=== PATIENT | male | born 1940 | race Two or more races ===

== ENCOUNTER → 2023-08-27 08:02 | Outpatient (REF) | payer MEDICARE, OTHER, SELFPAY | LOC: RAD 08:02 | PROVIDERS: ATTENDING PHYSICIAN Surgery Vascular Surgery; FAMILY PHYSICIAN Nurse Practitioner Adult Health | DX: I65.23 Occlusion and stenosis of bilateral carotid arteries (principal) | CPT/HCPCS: 93880 ==

== ENCOUNTER → 2024-03-03 08:02 | Outpatient (REF) | payer MEDICARE, OTHER, SELFPAY | LOC: RAD 08:02 | PROVIDERS: ATTENDING PHYSICIAN Physician Assistant | DX: I65.23 Occlusion and stenosis of bilateral carotid arteries (principal) | CPT/HCPCS: 93880 ==

== ENCOUNTER 2024-03-13 18:59 | Observation (INO) | payer MEDICARE, OTHER, SELFPAY ==
[2024-03-13 15:13] VITALS: BP 162/70
--- NOTE | 2024-03-13 15:18 | ED.PDOC.TRB ---
ED Provider Triage
-
Patient seen by provider in Triage?: Seen in Triage
83-year-old male presents in referral from his eye doctor after being evaluated. 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 Patient offers no complaints however his states that he has been
complaining about his vision lately. He denies headache. He is alert in triage. Labs and EKG started. Deferred imaging. Patient did have outpatient vascular ultrasound of his carotids last week
[2024-03-13 15:40] LABS: % Basophils 0.7 % (0-2); % Eosinophils 3.4 % (0-6); % Immature Granulocytes 0.2 % (0-0.5); % Lymphocytes 19.7 % (20.5-51.1); Absolute Eosinophils 0.2 10^3/uL (0-0.7); Absolute Lymphocytes 0.9 10^3/uL (1.2-3.4); Absolute Monocytes 0.4 10^3/uL (0.1-0.6); Absolute Neutrophils 2.9 10^3/uL (1.4-6.5); Hematocrit 31.7 % (39.0-52.0); Hemoglobin 10.6 g/dL (13.0-18.0); Mean Corp Hgb Conc. 33.4 g/dL (33.0-37.0); Mean Corpuscular Hgb 29.9 pg (27.0-31.0); Mean Corpuscular Volume 89.5 fL (80.0-94.0); Nucleated Red Blood Cells % 0 % (-); Platelet Count 178 10^3/uL (130-400); Red Blood Cell Count 3.54 10^6/uL (4.70-6.10); Red Cell Dist. Width 14.8 % (11.5-14.5); White Blood Cell Count 4.4 10^3/uL (4.8-10.8)
[2024-03-13 16:00] LABS: ALT (SGPT) 14 U/L (0-50); AST (SGOT) 26 U/L (17-59); Albumin 3.8 g/dl (3.5-5.0); Alkaline Phosphatase 120 U/L (38-126); Blood Urea Nitrogen 23 mg/dl (9-20); Calcium 9.5 mg/dl (8.4-10.2); Carbon Dioxide 28 mmol/L (22-30); Chloride 104 mmol/L (98-107); Glucose 101 mg/dl (70-99); Potassium 4.2 mmol/L (3.5-5.1); Sodium 141 mmol/L (135-145); Total Bilirubin 0.8 mg/dl (0.2-1.3); Total Protein 7.4 g/dl (6.3-8.2); eGFR > 60.00
--- NOTE | 2024-03-13 16:45 | ED.GENMED ---
History of Present Illness
General
Chief Complaint: Eye Problems
Source: patient, spouse and other (Cash Grain [employer]er)
Exam Limitations: none
Time Seen by Provider: 03/13/24 16:24
Nursing documentation reviewed up to this point in time: agreed with
History of Present Illness
History of Present Illness:
83-year-old male presents emergency room due to a Hollenhorst plaque seen at optometry visit. Cash Grain Grower Kristine Grey saw him because he reported an intermittent change in his vision, a blue spot after having cardiac bypass last year. He also
had a carotid endarterectomy last year.
Past History
Past History
ED Past Medical History: CAD, HTN, Hypercholesterolemia and Other (Atherosclerosis)
ED Past Surgical History: Cardiac (CABG, cardiac stent)
Social History
Tobacco: Non-smoker
Alcohol: None
Drug: None
Personal:
Living: with family
Employment: Retired
Review of Systems
Review of Systems
Allergies reviewed?: Yes
All Other Systems: Not applicable
Constitutional: Reports no symptoms
EENT: Reports other (Vision changes)
Respiratory: Reports no symptoms
Cardiac: Reports no symptoms
ABD/GI: Reports no symptoms
: Reports no symptoms
Musculoskeletal: Reports no symptoms
Skin: Reports no symptoms
Neurological: Reports no symptoms
Endocrine: Reports no symptoms
Hematologic/Lymphatic: Reports no symptoms
Psychiatric: Reports no symptoms
Phy Exam
Physical Exam
Physical Exam:
Physical Exam
General: no apparent distress, not acutely ill
Neck: supple. no meningeal signs. normal posterior pharynx, left neck scar from CEA
Heart: s1/s2 regular rate and rhythm, no murmur. equal radial
pulses. Midline sternotomy scar
HEENT: Pupils equal round reactive to light, EOMI
Lungs: no acute respiratory distress. clear bilaterally
Abdomen: normal bowel sounds. not tender. no CVAT
Neuro: alert and oriented. no focal neurological deficits cranial nerves II through XII intact
Skin: no rash
Psychiatric: well kept. interactive and cooperative
Extremities: no edema. no calf tenderness. negative homans. good distal pulses
Course
Orders/Labs/Results
Orders:
Orders
03/13/24 15:14
Electrocardiogram (*1) Urgent
Reason for Study: TIA/Stroke
EKG- Treatment ONCE
03/13/24 15:31
Complete Blood Count/With Diff Urgent
Comprehensive Metabolic Panel Urgent
Glycohemoglobin (HgbA1c) Urgent
03/13/24 16:50
CT Head W/o Iv Contrast Urgent
Comment:
Reason For Exam: vision changes, Hollenhorst plaque
03/13/24 17:45
Clopidogrel Bisulfate [Plavix] 300 mg PO NOW STA
03/13/24 17:47
Aspirin Chewable [Low Strength Aspirin] 81 mg PO NOW STA
03/13/24 18:03
Admit/Transfer Patient As Directed
Co-Sign Provider:
Level of Care: Observation services
Assign to:: Telemetry
Physician / Group: acacia
Diagnosis: central retinal artery occlusion vs CVA
Reason for Telemetry: Arrhythmia
Date to Stop Telemetry: 03/16/24
Time to Stop Telemetry: 11:00
Code Status As Directed
Resuscitation Status: Do not resuscitate
Reached after discussion with pt or family/Healthcare POA: Yes
PRN Pain Medication Management As Directed
May give lesser potent ordered pain med per pt: Yes
preference::
Protocol:: Medication orders for pain may be administered in a
manner that supports deferring to patient preference
when the pt is:
- Requesting an ordered lesser potent pain medication.
Least to most potent pain medications are defined
as: acetaminophen < NSAID < tramadol < opioids
(morphine, oxycodone, hydromorphone).
- Requesting a lesser dose of the same medication IF
ORDERED.
- Requesting a less intrusive route of administration
if both routes are prescribed by the provider (PO <
IV).
03/13/24 18:04
DNR Bracelet Application ONCE
03/13/24 19:54
NEUROLOGY CONSULT Routine
Consulting Provider: Lashell Gutiérrez
Was physician already notified: Yes
MA [place] Routine
Comment:
Reason For Exam: stroke/TIA
Recent pill cam endoscopy?: No
MA Neck With Contrast Routine
Comment:
Reason For Exam: stroke/TIA
Recent pill cam endoscopy?: No
MR Brain Without Contrast Routine
Comment:
Reason For Exam: stroke/TIA
Recent pill cam endoscopy?: No
Activity As Directed
Activity Level: As Tolerated
NIH Stroke Scale As Directed
Directions: Per protocol
Comment: every shift and with any change in condition or mental status
Neurological Checks As Directed
Frequency: q4h
Additional Instructions:: q4h x 24h upon admission to the floor, then qshift & with any change in condition
and mental status
Patient Education As Directed
Type: Stroke education packet
Comment: provide to patient and family
Pneumatic Compression Sleeves As Directed
Type: Knee high
Vital Signs As Directed
Frequency: Per unit guidelines
DX Deep Vein Thrombosis Video Routine
03/13/24 22:00
Donepezil [Aricept] 5 mg PO HS
Tamsulosin [Flomax] 0.4 mg PO HS
03/14/24 06:00
Basic Metabolic Panel IN AM
Cardiovascular Evaluation IN AM
Complete Blood Count/No Diff IN AM
03/14/24 08:00
Aspirin Chewable [Low Strength Aspirin] 81 mg PO DAILY
Atorvastatin [Lipitor] 80 mg PO DAILY
Irbesartan [Avapro] 300 mg PO DAILY
Metoprolol Xl [Toprol Xl] 12.5 mg PO DAILY
Pantoprazole [Protonix] 40 mg PO DAILY
03/16/24 11:00
DC Protocol for Telemetry ONCE
Abnormal Lab Results
03/13/24
15:31
WBC 4.4 L 10^3/uL
(4.8-10.8)
RBC 3.54 L 10^6/uL
(4.70-6.10)
Hgb 10.6 L g/dL
(13.0-18.0)
Hct 31.7 L %
(39.0-52.0)
RDW 14.8 H %
(11.5-14.5)
Absolute Lymphs (auto) 0.9 L 10^3/uL
(1.2-3.4)
Lymphocytes % 19.7 L %
(20.5-51.1)
Monocytes % 10.0 H %
(1.7-9.3)
BUN 23 H mg/dl
(9-20)
Glucose 101 H mg/dl
(70-99)
03/13/24 15:31
03/13/24 15:31
Vital Signs
Initial and Last Documented VS:
Initial Vital Signs
Temp Pulse Resp BP Pulse Ox
97.6 F 68 16 162/70 99
03/13/24 15:13 03/13/24 15:13 03/13/24 15:13 03/13/24 15:13 03/13/24 15:13
Last Documented Vital Signs
Temp Pulse Resp BP Pulse Ox
97.6 F 68 16 159/74 100
03/13/24 20:15 03/13/24 20:15 03/13/24 20:15 03/13/24 20:15 03/13/24 20:15
MDM/Problems Addressed
Differential Diagnosis Includes:
CVA, atherosclerosis
MDM/Problems Addressed:
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 Admit to hospitalist.
Chronic conditions affecting care: HTN, CAD and Cardiomyopathy
Acute Exacerbation and/or Progression of Chronic Illness: HTN, CAD and Cardiomyopathy
*Radiology
Radiology exam reviewed: radiology read reviewed (CT head no acute findings)
*Pulse Oximetry
Patient hypoxic: no
*EKG
Interpreted by ED Provider?: Yes
EKG Intrepretation Date: 03/13/24
EKG Intrepretation Time: 15:26
Interpretation: normal
Comparison EKG: changes noted
Heart Rate: 62
Rate: normal
Rhythm: sinus
[place]: normal axis
Interval: normal interval
QRS Pattern: normal QRS
Ischemia: no ischemia
*House Father Interpretation
Rate: normal
Interpretation: normal
Heart Rate: 65
Rhythm: sinus
*Critical Care Note
Total Time (30-74mins, 75-104mins- exclusive of procedures): Not Applicable
Data Reviewed
Review of Other/Old Records Reveals: Operative Reports (CABG 11/29/[address])
Patient Management
Social determinants of health affecting care: Living situation
Discussion with other providers: Hospitalist and Cardiac Technologist (neurology Dr. Gutiérrez recommends admit and cva w/u)
Escalation/DeEscalation of care consider admission/obs:
admit indicated
ED Attending Note
-
Portions of this chart may have been created with voice recognition software.� Occasional wrong word or��sound alike� substitutions may have occurred due to the inherent limitations of voice recognition software.
Discharge Plan
Departure
Patient Disposition: Admit
Date of Disposition: 03/13/24
Time of Disposition: 17:38
Admit to: Telemetry
Presentation/result/management discussed w/ accepting MD/DO: Hospitalist
Patient with high blood pressure during this ER visit?: Yes
Condition: Good
Discharge Problem:
Change in vision, Hollenhorst plaque
Interventions
Interventions:
*Risk Screen - Suicide Last Done: 03/13/24 16:25
*General Assessment Last Done: 03/13/24 19:33
*Neglect/Abuse Screening Last Done: 03/13/24 16:25
*Nursing Disposition Last Done: 03/13/24 19:50
Discharge Date and Time
Discharge Date/Time: 03/13/24 19:50
[2024-03-13 17:48] VITALS: BP 168/62; BMI 24.0
--- NOTE | 2024-03-13 18:06 | HPS.HSE ---
Family Physician
-
Family Physician: BOSTON Lamar
Chief Complaint
-
abnormal eye exam
History of Present Illness
83-year-old male past medical history of CAD status post CABG x 3, ischemic cardiomyopathy, bilateral carotid artery stenosis, hypertension, hyperlipidemia, BPH, CKD, osteoarthritis, presenting to the emergency room as sent in by his cell support operator.
Patient states that he had a routine cell support operator appointment to get the prescription of his glasses updated. He denied any visual symptoms such as visual loss, floaters in the eye, blurry vision, headache, difficulty speaking or swallowing,
dizziness or vertigo, numbness or tingling or focal weakness.
He was sent in by his cell support operator because she apparently noticed a Hollenhorst plaque on examination.
He denies smoking or alcohol use.
Medical History
Past Medical History
Past Medical History: Reports Other (CAD status post CABG x 3, ischemic cardiomyopathy, bilateral carotid artery stenosis, hypertension, hyperlipidemia, BPH, CKD, osteoarthritis,)
Past Surgical History: Reports Other ((CABG, cardiac stent, CEA left )
Social History
Tobacco: Non-smoker
Alcohol: None
Drug: None
Family History
Family History: Not pertinent
Allergies / Home Medications
Allergies reflects when Allergies were last updated in [facility].
Home Medications with original date entered in [facility]
Allergy/Medication List:
Allergies
Allergy/AdvReac Type Severity Reaction Status Date / Time
No Known Allergies Allergy Verified 03/13/24 15:17
Home Medications
aspirin 81 mg chewable tablet 81 mg PO DAILY #0 tabs 12/04/22
atorvastatin 80 mg tablet 80 mg PO DAILY 03/13/24
donepezil 5 mg tablet 5 mg PO HS 03/13/24
irbesartan 300 mg tablet 300 mg PO DAILY 03/13/24
metoprolol succinate 25 mg tablet,extended release 24 hr 12.5 mg PO DAILY 03/13/24
omeprazole 20 mg capsule,delayed release 20 mg PO DAILY 03/13/24
tamsulosin 0.4 mg capsule 0.4 mg PO HS 03/13/24
Review of Systems
-
History Source: Patient
A 12 point ROS was completed and negative except as noted: Yes
Constitutional: Reports No Symptoms
EENT: Reports No Symptoms
Respiratory: Reports No Symptoms
Cardiac: Reports No Symptoms
Abdomen/GI: Reports No Symptoms
: Reports No Symptoms
Musculoskeletal: Reports No Symptoms
Skin: Reports No Symptoms
Neurological: Reports No Symptoms
Endocrine: Reports No Symptoms
Hematologic/Lymphatic: Reports No Symptoms
Psych: Reports No Symptoms
Physical Exam
Vital Signs
Vital Signs
Temp Pulse Resp BP Pulse Ox
97.6 F 59 19 168/62 99
03/13/24 15:13 03/13/24 17:48 03/13/24 17:48 03/13/24 17:48 03/13/24 15:13
Physical Exam
General: Well Developed, Well Nourished and No Apparent Distress
HEENT: NormoCephalic, Moist mucous membranes and Atraumatic
Respiratory: Clear
Cardiac: S1/S2 and Regular Rhythm; No Murmur or Rub
GI: Soft, Non Tender, Non Distended and Normal Bowel Sounds; No Organomegaly
Rectal: Deferred by Provider
Musculoskeletal: No Clubbing, No Cyanosis and No Edema
Skin: No Rash
Neuro: Nonfocal/grossly intact
Laboratory Results
-
03/13/24 15:31
03/13/24 15:31
Laboratory Results
Total Bilirubin 0.8 mg/dl (0.2-1.3) 03/13/24 15:31
AST 26 U/L (17-59) 03/13/24 15:31
ALT 14 U/L (0-50) 03/13/24 15:31
Alkaline Phosphatase 120 U/L (38-126) 03/13/24 15:31
Data Reviewed
-
Lab Data: Labs Reviewed by me
Old Records: Reviewed
Impression/Plan
-
IMPRESSION:
PLAN:
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
# History of bilateral carotid artery stenosis status post left-sided CEA last year
-Patient asymptomatic
-CT head shows no acute intracranial abnormality
-Aspirin and Plavix given, continue statin
-Check MRI/MRA head and neck
-Neurology consulted
CAD status post CABG x 3
-Continue metoprolol
History of ischemic cardiomyopathy
Essential hypertension
-Continue irbesartan
Hyperlipidemia
CKD 3
-Renal function better than baseline
BPH
-Continue tamsulosin
Dementia
-Continue donepezil
Osteoarthritis
DNR/DNI
DVT prophylaxis SCDs
Regular diet
[2024-03-13] MEDS: PLAVIX 300 MG PO (18:20)
[2024-03-13] MEDS: LOW STRENGTH ASPIRIN 81 MG PO (18:20)
[2024-03-13 20:15] VITALS: BP 159/74; BMI 23.6
--- NOTE | 2024-03-13 20:30 | PTCARENOTE ---
Pt received from ED at 1999. Pt AAOX3, VSS, and absent of pain. Pt able to walked into room and is receptive to room and callbell. Will continue with current plan of care.
[2024-03-13] MEDS: FLOMAX 0.4 MG PO (22:30)
[2024-03-13] MEDS: ARICEPT 5 MG PO (22:30)
[2024-03-13 23:19] VITALS: BP 138/71
[2024-03-14] VITALS (7 sets, daily range): BP systolic 135–166; BP diastolic 66–88
[2024-03-14 06:22] LABS: Hematocrit 30.6 % (39.0-52.0); Hemoglobin 10.4 g/dL (13.0-18.0); Mean Corpuscular Hgb 30.1 pg (27.0-31.0); Mean Corpuscular Volume 88.4 fL (80.0-94.0); Mean Platelet Volume 10.5 fL (7.4-10.4); Platelet Count 168 10^3/uL (130-400); Red Blood Cell Count 3.46 10^6/uL (4.70-6.10); Red Cell Dist. Width 14.8 % (11.5-14.5); White Blood Cell Count 3.9 10^3/uL (4.8-10.8)
[2024-03-14 06:53] LABS: Blood Urea Nitrogen 24 mg/dl (9-20); Calcium 9.3 mg/dl (8.4-10.2); Carbon Dioxide 26 mmol/L (22-30); Chloride 105 mmol/L (98-107); Estimated Creatinine Clearance 50 ml/min; Glucose 92 mg/dl (70-99); HDL Cholesterol 65 mg/dl; LDL Cholesterol, Calculated 72 mg/dl; Potassium 4.7 mmol/L (3.5-5.1); Sodium 140 mmol/L (135-145); Total Cholesterol 150 mg/dl (50-199); Triglyceride 65 mg/dl (10-149); Very Low Density Lipoprotein 13 mg/dl (0-30); eGFR > 60.00
[2024-03-14 08:49] LABS: Glycohemoglobin (HgbA1c) 5.6 % (4.0-5.6)
--- NOTE | 2024-03-14 09:03 | CON.NEURO4 ---
Addendum entered and electronically signed by Villa Randall MD 03/14/24 14:55:
Studies reviewed.
I have personally examined the patient. I reviewed and agree with the [employer] OFFICER's Note.
My addenda:
Awake, alert, interactive. No acute distress.
Speech intact.
Follows 2-step requests w/o difficulty. No tremor.
Extra-ocular movements grossly intact.
Facial movements full and symmetric. Hearing intact to normal conversational volume.
Normal UE movements bilaterally.
Neck: full ROM.
Chest: no dyspnea
Heart: no JVD
Ext: (-) Clubbing, (-) Cyanosis, (-) Edema
IMPRESSIONS/RECOMMENDATIONS:
Abrupt onset of Hollenhorst plaque discovered in the right eye during routine ophthalmologic visit
As the patient's LDL is minimally above 70, add Ezetimibe to the patient's atorvastatin 80 mg daily
Add clopidogrel 75 mg to the patient's usual aspirin 81 mg daily, discontinue clopidogrel after 21 days
Due to limitations in the patient's ability to cooperate with visual field examination today, check MRI of brain for completeness
Continue Donepezil, check blood work for potential metabolic etiologies for the patient's cognitive issues, although those are unlikely
D/W patient
All questions answered.
Will continue to follow pending results.
Original Note:
Documented by User: Martina Andrews NP 03/14/24 10:25
Consultation - Neurology 4
-
CONSULTING PHYSICIAN: Villa Randall MD
REFERRING PHYSICIAN: Hospitalists/Dr. Amin
DICTATED BY: BOSTON Benavides
DATE/TIME OF REQUEST: 03/13/24
DATE/TIME OF CONSULTATION: 03/14/24
Reason for Consultation: Right eye Hollenhorst plaque
History of Present Illness:
This is a 83-year-old right-handed male who has presented to the hospital on 03/13/24 by referral of his curb hop for concern of a right eye Hollenhorst plaque. Patient reports going to his routine eye appointment yesterday and upon evaluation he
reports he was told he might have some plaque in one of the arteries leading to his right eye. He reports chronic vision problems but denies noticing any changes in his vision. He denies any headache, dizziness, speech/swallow difficulty, numbness,
weakness, chest pain, palpitations, and shortness of breath. CT head was obtained on arrival in the ER and is negative for any acute findings. He is taking aspirin 81mg daily and was loaded with Plavix in the ER. He is followed by Vascular Surgery
as an outpatient for bilateral carotid artery stenosis and underwent L CEA in November 2022. Surveillance carotid ultrasound imaging was recently completed on 03/03/24 and demonstrates R ICA 50-69% stenosis and L ICA <50% stenosis. He is taking donepezil
5mg daily which appears to be a somewhat new medication for him. He endorses years of memory problems. He has not been evaluated by a Neurologist in the past, his PCP prescribed this medication.
Past Medical History: HTN, HLD, CAD, CKD, BPH, DJD, bilateral carotid artery stenosis
Surgical History: CABG x3, L CEA 11/2022
Family History: Reviewed and noncontributory.
Social History: Denies tobacco, alcohol, and illicit drug use.
Allergies: No known allergies.
Home Medications: See below.
Review of Symptoms:
Patient denies any fever, headache, chest pain, shortness of breath, GI or symptoms.
�Per the HPI.�All systems are reviewed negative except above.
Physical Exam:
The patient is afebrile, abdomen is nondistended, breathing is unlabored, skin is warm and dry, no edema.
NIH Stroke Scale:
I performed the NIH stroke scale on the patient on 03/14/24 at 0910. The patient scored 2 points on the NIH stroke scale assessment, which were assigned as follows: See below.
Neurologic Examination:
The patient is awake, alert and oriented x 3. He is able to follow commands and answer questions appropriately. There is no aphasia or dysarthria. On cranial nerve assessment, pupils are 3 mm bilateral, round and reactive to light and
accommodation. 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 Extraocular movements are intact. Facial sensations are intact and bilaterally symmetrical, there is no facial asymmetry. Hearing is intact
bilaterally to normal conversation volume. Tongue palate and uvula are midline. Sternocleidomastoid strengths are full bilaterally. Motor strengths are 5/5 bilateral upper and lower extremities on medical research [place] scale. There is no drift or
involuntary movement noted. Babinski is absent bilaterally. There was no extinction noted on double simultaneous stimulation. Coordination is intact by finger to nose bilaterally.
Lab Results: See below.
Neuro Imaging:
1. CT Head 03/13/24: No acute intracranial abnormality noted. Mild global parenchymal volume loss with sequelae of mild small vessel ischemic disease.
2. Carotid Ultrasound 03/03/24: RIGHT: A mix of calcified and soft plaque is identified in the proximal internal carotid artery. Carotid velocity measurements are consistent with 50 to 69% stenosis. Vertebral artery flow is antegrade. LEFT: Patent
carotid endarterectomy. Carotid velocity measurements are consistent with less than 50% internal carotid artery stenosis. Vertebral artery flow is antegrade.
Differentials for the patient's presentation include:
1. Optometry exam suggestive of R eye Hollenhorst plaque. Neurologic exam suggestive of a R homonymous hemianopia.
Patient has the following risk factors for their symptoms: HTN, HLD, age
IV Tenecteplase/IAT candidacy: He is not a candidate for TNK/IAT due to unclear onset of symptoms, no LVO.
Recommendations:
-Continue DAPT with aspirin 81mg and Plavix 75mg daily for 21 days. After 21 days, discontinue Plavix and continue aspirin 81mg daily only.
-Goal normotension.
-MRI brain noncontrast pending.
-LDL goal <70. LDL is 72. Continue home atorvastatin 80mg daily. Initiate ezetimibe 10mg daily for additional lowering of cholesterol.
-Goal normoglycemia, hbA1c is 5.6.
-NIHSS and neurological checks per unit guidelines.
-Provide patient with a stroke education packet.
-PT/OT evaluations.
-DVT prophylaxis.
-Continue home donepezil, patient may benefit from outpatient neuropsychological testing.
-Will follow pending results.
Discussed patient care with: Dr. Randall, the patient
Vital Signs and Labs
-
Vital Signs and Labs:
Vital Signs
Temp Pulse Resp BP Pulse Ox
97.7 F 56 16 135/66 100
03/14/24 03:07 03/14/24 03:07 03/14/24 03:07 03/14/24 03:07 03/14/24 03:07
Lab Results
03/14/24 06:00
03/14/24 06:00
Sodium 140 mmol/L (135-145) 03/14/24 06:00
Potassium 4.7 mmol/L (3.5-5.1) 03/14/24 06:00
BUN 24 mg/dl (9-20) H 03/14/24 06:00
Glucose 92 mg/dl (70-99) 03/14/24 06:00
Calcium 9.3 mg/dl (8.4-10.2) 03/14/24 06:00
LDL Cholesterol, Calc 72 mg/dl 03/14/24 06:00
Medications
-
Active Medications
Generic Name Dose Route Start Last Admin
Trade Name Freq PRN Reason Stop Dose Admin
Aspirin 81 mg 03/14/24 08:00
Aspirin 81 Mg Chewable Tablet PO 04/11/24 07:59
DAILY MILI
Atorvastatin Calcium 80 mg 03/14/24 08:00
Atorvastatin (Lipitor) 80 Mg Tablet PO 04/11/24 07:59
DAILY MILI
Clopidogrel Bisulfate 75 mg 03/14/24 09:00
Clopidogrel 75 Mg Tablet PO 04/03/24 08:01
DAILY MILI
Donepezil HCl 5 mg 03/13/24 22:00 03/13/24 22:30
Donepezil 5 Mg Tablet PO 04/10/24 21:59 5 mg
HS MILI Administration
Ezetimibe 10 mg 03/14/24 22:00
Ezetimibe (Zetia) 10 Mg Tablet PO 04/11/24 21:59
HS MILI
Irbesartan 300 mg 03/14/24 08:00
Irbesartan 300 Mg Tablet PO 04/11/24 07:59
DAILY MILI
Metoprolol Succinate 12.5 mg 03/14/24 08:00
Metoprolol 12.5 Mg Extended Release Dose (1/2 Of 25 Mg Xl Tablet) PO 04/11/24 07:59
DAILY MILI
Pantoprazole Sodium 40 mg 03/14/24 08:00
Pantoprazole 40 Mg Delayed Release Tablet PO 04/11/24 07:59
DAILY MILI
Sodium Chloride 0 flush 03/13/24 21:00
Sodium Chloride 0.9% (Flush) Syringe IV 04/10/24 20:59
PER PROTOCOL MILI
Tamsulosin HCl 0.4 mg 03/13/24 22:00 03/13/24 22:30
Tamsulosin 0.4 Mg Capsule PO 04/10/24 21:59 0.4 mg
HS MILI Administration
Home Medications
�Medication �Instructions �Recorded
aspirin 81 mg chewable tablet 81 mg PO DAILY #0 tabs 12/04/22
atorvastatin 80 mg tablet 80 mg PO DAILY 03/13/24
donepezil 5 mg tablet 5 mg PO HS 03/13/24
irbesartan 300 mg tablet 300 mg PO DAILY 03/13/24
metoprolol succinate 25 mg 12.5 mg PO DAILY 03/13/24
tablet,extended release 24 hr
omeprazole 20 mg capsule,delayed 20 mg PO DAILY 03/13/24
release
tamsulosin 0.4 mg capsule 0.4 mg PO HS 03/13/24
NIH Stroke Score
Subsequent NIH Scale
Date of Subsequent NIH Scale: 03/14/24
Time of Subsequent NIH Scale: 09:10
NIH Stroke Score
Level of Consciousness: 0 - Alert
LOC Questions: 0-Answers both correctly
LOC Commands: 0-Performs both correctly
Best Horizontal Gaze: 0-Normal
Visual Boland: 2=Full hemianopia
Facial Palsy: 0=Normal, symmetrical
Motor - Right Arm: 0=No drift 10 seconds
Motor - Left Arm: 0=No drift 10 seconds
Motor - Right Le-No drift 5 seconds
Motor - Left Le-No drift 5 seconds
Limb Ataxia: 0-Absent
Sensation: 0-Normal
Best Language: 0-No aphasia
Dysarthria: 0-Normal
Extinction and Inattention: 0-No abnormality
Total Score:: 2
Modified [place] (mRS) Score
Modified [place] Scale (mRS): No significant disability. Able to carry out usual activities.
Score: 1
Alteplase Contraindication
Inclusion and Exclusion criteria reviewed: Yes
Reasons for NON-Tx with Thrombolytics ABSOLUTE Exclusions: Greater than 4.5 hrs from onset of sxs (unclear onset time)
IAT Contraindications: NIHSS < 6

Documented by User: Villa Randall MD 03/14/24 14:35
NIH Stroke Score
NIH Stroke Score
Total Score:: 2
Modified [place] (mRS) Score
Score: 1
[2024-03-14] MEDS: AVAPRO 300 MG PO (09:36)
[2024-03-14] MEDS: LOW STRENGTH ASPIRIN 81 MG PO (09:36)
[2024-03-14] MEDS: LIPITOR 80 MG PO (09:36)
[2024-03-14] MEDS: PLAVIX 75 MG PO (09:36)
[2024-03-14] MEDS: PROTONIX 40 MG PO (09:37)
[2024-03-14] MEDS: TOPROL XL 12.5 MG PO (09:37)
[2024-03-14 15:50] LABS: Erythrocyte Sed Rate 39 mm/hour (0-20)
[2024-03-14 16:08] LABS: TSH Reflex To Free T4 1.63 uIU/ml (0.47-4.68)
[2024-03-14 16:43] LABS: Folate 12.2 ng/ml (2.76-20); Vitamin B12 351 pg/ml (239-931)
--- NOTE | 2024-03-14 16:46 | CM ---
Patient was notified that he is OBS, MARTINEZ letter provided to patient, not signed, patient lives with spouse in an apartment patient is independent with adl's and ambulation, no dme, patient drives, home with spouse when stable, no needs.
Pharmacy: [facility]
PCP: Virginia Desir
Plan; Home when stable, no needs.
--- NOTE | 2024-03-14 17:03 | W.PN.HOSP.TC ---
Today's Communication/Plan
-
PT OT
MRI
Assessment / Plan
Assessment / Plan
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 She had an eye appointment yesterday. He has chronic problems with vision but no recent changes. He has been taking aspirin daily prior to admission. He also has
bilateral carotid disease and underwent a left CEA in November 2022. Surveillance carotid ultrasound was completed on 03/03/2024 which showed 50 to 69% stenosis of the right ICA.
CVS: S1-S2 normal
Chest: CTA
Abdomen: Soft, NT / Bowel sounds present
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
# CVA/TIA
Continue aspirin and Plavix for 21 days after 21 days discontinue Plavix and continue aspirin.
Continue atorvastatin 80 mg daily. Zetia added by neurology
Neurochecks and NIH scale
MRI of the brain done-results pending
Neurology evaluation
PT OT evaluation
# Coronary artery disease with cardiac stent in 2012
History of CABG with DALY clip 11/27/2022
Continue aspirin and statin
# Hypertension-irbesartan, metoprolol
# Hyperlipidemia-continue statin, Zetia added as above
# cognitive impairment-Aricept
# Anemia-replace low normal B12
# CKD stage III
# Enlarged prostate
# DNR/DNI
# DVT prophylaxis- MILI
Anticipated Discharge: Within 24 hours
Subjective/Interval History
-
Date of Service: March 14, 2024
Objective Data
-
Labs:
Laboratory Results
03/14/24
06:00
WBC 3.9 L
Hgb 10.4 L
Hct 30.6 L
Plt Count 168
Sodium 140
Potassium 4.7
Chloride 105
Carbon Dioxide 26
BUN 24 H
Creatinine 1.2
Glucose 92
Calcium 9.3
Vital Signs:
Vital Signs
Temp Pulse Resp BP Pulse Ox
97.6 F 73 20 142/66 98
03/14/24 11:25 03/14/24 11:25 03/14/24 11:25 03/14/24 11:25 03/14/24 11:25
[2024-03-14] MEDS: VITAMIN B-12 1000 MCG PO (18:17)
[2024-03-14] MEDS: ZETIA 10 MG PO (21:20)
[2024-03-14] MEDS: FLOMAX 0.4 MG PO (21:20)
[2024-03-14] MEDS: ARICEPT 5 MG PO (21:20)
[2024-03-15 03:27] VITALS: BP 149/74
[2024-03-15 07:00] VITALS: BP 131/66
[2024-03-15] MEDS: TOPROL XL 12.5 MG PO (09:07)
[2024-03-15] MEDS: PROTONIX 40 MG PO (09:07)
[2024-03-15] MEDS: LIPITOR 80 MG PO (09:07)
[2024-03-15] MEDS: AVAPRO 300 MG PO (09:07)
[2024-03-15] MEDS: LOW STRENGTH ASPIRIN 81 MG PO (09:08)
[2024-03-15] MEDS: PLAVIX 75 MG PO (09:08)
[2024-03-15] MEDS: VITAMIN B-12 1000 MCG PO (09:08)
[2024-03-15 11:00] VITALS: BP 123/68
--- NOTE | 2024-03-15 13:45 | W.PN.HOSP.TC ---
Addendum entered and electronically signed by Annel Cisneros MD 03/15/24 14:07:
discharge coordination time 36 min
Original Note:
Today's Communication/Plan
-
Discharge after seen by PT
Assessment / Plan
Assessment / Plan
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 She had an eye appointment yesterday. He has chronic problems with vision but no recent changes. He has been taking aspirin daily prior to admission. He also has
bilateral carotid disease and underwent a left CEA in November 2022. Surveillance carotid ultrasound was completed on 03/03/2024 which showed 50 to 69% stenosis of the right ICA.
CVS: S1-S2 normal
Chest: CTA
Abdomen: Soft, NT / Bowel sounds present
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
# CVA/TIA
Continue aspirin and Plavix for 21 days after 21 days discontinue Plavix and continue aspirin.
Continue atorvastatin 80 mg daily. Zetia added by neurology
Neurochecks and NIH scale
MRI of the brain --no MRI evidence of acute subacute or chronic infarct. Noted by lateral temporal and parietal lobe volume loss suspicious for Alzheimer's disease. Moderate-sized multilevel disc osteophyte complex in the cervical spine causing
multilevel spinal cord compression and central canal stenosis.
Neurology evaluation appreciated-discussed. Okay for discharge
PT OT evaluation
# Coronary artery disease with cardiac stent in 2012
History of CABG with DALY clip 11/27/2022
Continue aspirin and statin
# Hypertension-Irbesartan, Metoprolol
# Hyperlipidemia-continue Statin, Zetia added as above
# Cognitive impairment-Aricept
# Anemia-replace low normal B12
# CKD stage III
# Enlarged prostate
# DNR/DNI
# DVT prophylaxis- MILI
Discussed with neurology. Okay to discharge the patient. Continue with Plavix for 19 more days at discharge-confirmed
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 is aware that patient has dementia and also regarding the med changes. She is aware about the changes in the cervical spine and the need to follow-up.
All all of her to [facility] to evaluate.
Anticipated Discharge: Today
Subjective/Interval History
-
Date of Service: March 15, 2024
Objective Data
-
Vital Signs:
Vital Signs
Temp Pulse Resp BP Pulse Ox
97.7 F 73 14 123/68 99
03/15/24 11:00 03/15/24 11:00 03/15/24 11:00 03/15/24 11:00 03/15/24 11:00
I&O
03/14/24 03/15/24 03/16/24
06:59 06:59 06:59
Intake Total 1020 / 1020
Balance 1020 / 1020
--- NOTE | 2024-03-15 14:06 | W.DS.TRANS ---
Addendum entered and electronically signed by Annel Cisneros MD 03/15/24 15:15:
Dictation- [id number]
Original Note:
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
-
Discharge Instructions:
Discharge Diagnosis/Procedures Hollenhorst plaque discovered in the right eye
Coronary artery disease
Hypertension
High cholesterol
Memory impairment
Anemia
Enlarged prostate
Diet 2 Gram Sodium
Driving Restrictions No driving
Instructions:
Stand-Alone Forms:
Changes to Home Medications: Yes
Discharge Medications:
DC Medications w/original date entered in [employer]
atorvastatin 80 mg tablet 80 mg PO DAILY High Cholesterol 03/13/24
donepezil 5 mg tablet 5 mg PO HS cognative function 03/13/24
irbesartan 300 mg tablet 300 mg PO DAILY Blood Pressure 03/13/24
metoprolol succinate 25 mg tablet,extended release 24 hr 12.5 mg PO DAILY Heart Failure 03/13/24
omeprazole 20 mg capsule,delayed release 20 mg PO DAILY Gastrointestinal Issue 03/13/24
tamsulosin 0.4 mg capsule 0.4 mg PO HS Urinary Issue 03/13/24
aspirin 81 mg chewable tablet 81 mg PO DAILY Blood clot prevention/tx #0 tabs 03/15/24
clopidogrel 75 mg tablet 75 mg PO DAILY Blood clot prevention/tx #19 tabs 03/15/24
cyanocobalamin (vitamin B-12) 1,000 mcg tablet 1,000 mcg PO DAILY low normal b12 #30 tabs 03/15/24
ezetimibe 10 mg tablet 10 mg PO HS High cholesterol #60 tabs 03/15/24
Home Medication Changes
new
clopidogrel 75 mg tablet 75 mg PO DAILY Blood clot prevention/tx #19 tabs 03/15/24
cyanocobalamin (vitamin B-12) 1,000 mcg tablet 1,000 mcg PO DAILY low normal b12 #30 tabs 03/15/24
ezetimibe 10 mg tablet 10 mg PO HS High cholesterol #60 tabs 03/15/24
Pending Results: No
[2024-03-15 14:51] VITALS: BP 107/75
--- NOTE | 2024-03-15 15:28 | CM ---
CM following re: discharge planning.
Reviewed pt's chart, met with pt.
Discharge order noted. Pt is aware, expressed his agreement and he stated his spouse is coming to transport him home.
Pt has OBS status, no IMM requires.
D/C plan: home no needs. Pt is independent with functional ability. Spouse to transport.
== END 2024-03-15 15:42 | disposition home or self-care (01) ==
LOC: 4 WEST ACU 18:59
PROVIDERS: Physician Assistant; ADMITTING PHYSICIAN Hospitalist; ATTENDING PHYSICIAN Hospitalist; EMERGENCY PHYSICIAN Emergency Medicine; FAMILY PHYSICIAN Nurse Practitioner Adult Health; OTHER PHYSICIAN Psychiatry & Neurology Neurology
DX: H34.211 Partial retinal artery occlusion, right eye (principal); I25.10 Atherosclerotic heart disease of native coronary artery without angina pectoris; F03.90 Unspecified dementia, unspecified severity, without behavioral disturbance, psychotic disturbance, mood disturbance, and anxiety; I12.9 Hypertensive chronic kidney disease with stage 1 through stage 4 chronic kidney disease, or unspecified chronic kidney disease; E78.00 Pure hypercholesterolemia, unspecified; I25.5 Ischemic cardiomyopathy; D64.9 Anemia, unspecified; R94.31 Abnormal electrocardiogram [ECG] [EKG]; M50.022 Cervical disc disorder at C5-C6 level with myelopathy; M48.02 Spinal stenosis, cervical region; M19.90 Unspecified osteoarthritis, unspecified site; N40.0 Benign prostatic hyperplasia without lower urinary tract symptoms; I65.23 Occlusion and stenosis of bilateral carotid arteries; Z66 Do not resuscitate; Z95.5 Presence of coronary angioplasty implant and graft; Z95.1 Presence of aortocoronary bypass graft; Z79.82 Long term (current) use of aspirin
CPT/HCPCS: 70450; 70551; 80048; 80053; 80061; 82607; 82728; 82746; 83036; 84443; 85025; 85027; 85652; 86140; 93005; 97161; 99285; G0378

== ENCOUNTER → 2024-09-18 07:50 | Outpatient (REF) | payer MEDICARE, OTHER, SELFPAY | LOC: RAD 07:50 | PROVIDERS: ATTENDING PHYSICIAN Surgery Vascular Surgery | DX: I65.23 Occlusion and stenosis of bilateral carotid arteries (principal) | CPT/HCPCS: 93880 ==

== ENCOUNTER → 2025-04-03 07:55 | Outpatient (REF) | payer MEDICARE, SELFPAY | LOC: RAD 07:55 | PROVIDERS: ATTENDING PHYSICIAN Physician Assistant; FAMILY PHYSICIAN Family Medicine | DX: I65.23 Occlusion and stenosis of bilateral carotid arteries (principal) | CPT/HCPCS: 93880 ==